=== PATIENT | male | born 1970 | race Caucasian/White ===

== ENCOUNTER 2017-09-25 12:02 | Emergency (ER) | payer MEDICAID ==
--- NOTE | 2017-09-25 12:32 | Emergency Department Record ---
History of Present Illness - General Chief Complaint: Laceration(s) Stated Complaint: ARM LACERATION Time Seen by Provider: 09/25/17 12:26 Source: Patient Mode of Arrival: Ambulatory Limitations: No limitations - History of Present Illness Initial Commments: 46 yo male presents with a left forearm laceration. He was cutting tile with a tile knife. No weakness, numbness or tingling. He is up to date on immunization. Full ROM of the fingers, wrist and forearm. Onset/Timin -: Minutes(s) Extremity Location: Left: Forearm Place: Work Context: Accidental Associated Symptoms: None Treatments Prior to Arrival: Bandage - Buckner Coma Scale Eye Response: (4) Open spontaneously Motor Response: (6) Obeys commands Verbal Response: (5) Oriented Poli Total: 15 - Related Data Year of Tetanus Vaccination: 2016 Home Medications Medication Instructions Recorded Confirmed Last Taken Cyclobenzaprine HCl 10 mg PO TID 09/25/17 09/25/17 09/25/17 Gabapentin [Neurontin] 300 mg PO TID 09/25/17 09/25/17 09/25/17 Naproxen [Naprosyn] 500 mg PO TID 09/25/17 09/25/17 09/25/17 Allergies Allergy/AdvReac Type Severity Reaction Status Date / Time aspirin Allergy HYPERSENSIT Verified 09/25/17 12:14 IVITY codeine Allergy HIVES Verified 09/25/17 12:14 Penicillins Allergy HIVES Verified 09/25/17 12:14 Travel Screening - Travel/Exposure Within Last 30 Days Have you traveled within the last 30 days?: No - Travel/Exposure Within Last Year Have you traveled outside the [place] in the last year?: No - Additonal Travel Details Have you been exposed to anyone with a communicable illness?: No - Travel Symptoms Symptom Screening: None Review of Systems Constitutional: Denies: Chills, Fever, Malaise, Weakness Eyes: Denies: Eye discharge ENT: Denies: Congestion, Throat pain Respiratory: Denies: Cough Cardiovascular: Denies: Chest pain Endocrine: Denies: Fatigue Gastrointestinal: Denies: Abdominal pain, Diarrhea, Nausea, Vomiting Genitourinary: Denies: Dysuria, Frequency, Hematuria Musculoskeletal: Denies: Arthralgia, Back pain, Joint swelling, Myalgia, Neck pain Skin: Reports: Other (4cm laceration). Denies: Bruising, Change in color, Rash Neurological: Denies: Confusion, Headache Psychiatric: Denies: Anxiety Hematological/Lymphatic: Denies: Blood Clots, Easy bleeding, Easy bruising, Swollen glands Past Medical History - SOCIAL HISTORY Smoking Status: Current every day smoker Alcohol Use: Rare Drug Use: Heavy Drug Use Detail:: Marijuana - RESPIRATORY Hx Respiratory Disorders: No - CARDIOVASCULAR Hx Cardio Disorders: No - NEURO Hx Neuro Disorders: No - GI Hx GI Disorders: No - Hx Genitourinary Disorders: No - ENDOCRINE Hx Endocrine Disorders: No - MUSCULOSKELETAL Hx Musculoskeletal Disorders: Yes - PSYCH Hx Psych Problems: Yes Hx Anxiety: Yes Hx Depression: Yes - HEMATOLOGY/ONCOLOGY Hx Hematology/Oncology Disorders: No Family Medical History Any Significant Family History?: No Physical Exam - General General Appearance: Alert, Oriented x3, Cooperative, No acute distress Limitations: No limitations - Head Head exam: Atraumatic, Normal inspection - Eye Eye exam: Normal appearance. negative: Conjunctival injection - ENT ENT exam: Normal exam Ear exam: Normal external inspection Nasal Exam: Normal inspection Mouth exam: Normal external inspection Teeth exam: Normal inspection - Neck Neck exam: Normal inspection - Respiratory Respiratory exam: Normal lung sounds bilaterally. negative: Respiratory distress - Cardiovascular Cardiovascular Exam: Regular rate, Normal rhythm, Normal heart sounds Peripheral Pulses: 2+: Radial (L) - Rectal Rectal exam: Deferred - exam: Deferred - Extremities Extremities exam: Full ROM, Normal capillary refill. negative: Normal inspection, Joint swelling, Tenderness Image of Full Body: 1 - 4cm laceration to the forearm, no tendoon or muscle injury, full ROM, NO FB - Neurological Neurological exam: Alert, Oriented X3. negative: Motor sensory deficit - Psychiatric Psychiatric exam: Normal affect, Normal mood - Skin Skin exam: Other (laceration) Course - Reevaluation(s) Reevaluation #1: 09/25/17 12:30 PROCEDURE Laceration Repair 4cm forearm. Betadine Prep Lidocaine with Epi 4ml local Copious irrigation with NS No tendon injury No FB Prolene Suture 3-0 #8 We discussed home care and follow up as well as reason to return 09/25/17 12:30 Disposition Disposition: Discharge Clinical Impression: Laceration Disposition: Home, Self-Care Condition: (1) Good Instructions: Laceration (ED) Additional Instructions: Return if red, warm, pus, or any new concerns Suture removal in 12 days Keep dry, clean and covered at work Quality - Quality Measures Quality Measures: N/A - Blood Pressure Screening Does Patient Have Any of the Following: No Systolic Measurement: ~ Screening for High Blood Pressure: < Pre-Hypertensive BP, F/U Documented > [ [id number]] Pre-Hypertensive Follow-up Interventions: Referral to alternative/primary care provider.
== END 2017-09-25 12:56 | disposition home or self-care (01) ==
LOC: ER 12:02
DX: S51.812A Laceration without foreign body of left forearm, initial encounter (principal); W26.0XXA Contact with knife, initial encounter; Y99.0 Civilian activity done for income or pay
CPT/HCPCS: 12002; 99283